=== PATIENT | male | born 1930 | race Caucasian/White ===

== ENCOUNTER 2017-02-11 08:18 | Emergency (ER) | payer MEDICARE, OTHER ==
[~2017-02-11] VITALS: Ht 167.6 cm; Wt 81.6 kg
[~2017-02-11 08:18] MED LIST: B12 INJ.,1000 MCG/M IM; DICLOFENAC SODI75 M3 PO; ENALAPRIL2.5 MG PO; KEFLEX 500MG.500 MG PO; PANTOPRAZOLE PO; PERCOCET 5/3251 EACH PO; PHENERGAN 25MG.25 M1 PO; TAMSULOSIN HYD0.4 MG PO
--- OUTSIDE RECORDS SUMMARY | 2017-02-11 08:50 | External Medical Summary Rpt | CCD ---
Author Author , LAVERNE Organization LAVERNE Address Unknown Phone [email or web address] Name Relationship Address Phone JUAN Next Of Kin [address] KARLEE LOV[address] [phone] [place] [address] Purpose Continuity of Care Document - 11-10-2012 through 2016 Allergies, Adverse Reactions, Alerts Type Allergy to substance Adverse Reaction to Substance Substance Reaction Severity NO KNOWN ALLERGIES Unknown Unknown Vital Signs 11-10-2012 15:44 Name Value Interpretat Reference Comment ion Range Body 97.6 [degF] Temperature BP 71 mm[Hg] Diastolic BP Systolic 125 mm[Hg] Heart 66 /min Rate/Pulse O2% 98 % Respiratory 17 /min Rate 11-10-2012 15:42 Name Value Interpretat Reference Comment ion Range Body 97.6 [degF] Temperature BP 71 mm[Hg] Diastolic BP Systolic 125 mm[Hg] Heart 66 /min Rate/Pulse O2% 98 % Respiratory 17 /min Rate Encounters Encounter Start End Date Code Location Performer Type Date Emergency YOLI Dang MD (ER) 3 15:22 3 15:[address] [facility]
--- OUTSIDE RECORDS SUMMARY | 2017-02-11 08:50 | External Medical Summary Rpt | CCD ---
Author Author , LAVERNE Organization LAVERNE Address Unknown Phone [email or web address] Support Name Relationship Address Phone JUAN Next Of Kin [address]ARLEE [address]OV[address] [phone] [place] [address] Purpose Continuity of Care Document - 11-10-2012 [...] Dang MD (ER) 3 15:22 3 15:46 [facility]
--- OUTSIDE RECORDS SUMMARY | 2017-02-11 08:50 | External Medical Summary Rpt | CCD ---
Author Author [employer] Organization [employer] Address Unknown Phone Unavailable Purpose Continuity of Care Document - through 2016
--- OUTSIDE RECORDS SUMMARY | 2017-02-11 08:51 | External Medical Summary Rpt | CCD ---
Demographics Preferred Language Lao Marital Status Unknown Cheondoism Affiliation Unknown Race Unknown Ethnic Group Unknown Author Author , LAVERNE GALLOWAY Address Unknown Phone Immunization Unable to retrieve immunization data due to connection failure with Immunization Registry. Please try again later.
--- OUTSIDE RECORDS SUMMARY | 2017-02-11 08:51 | External Medical Summary Rpt ---
Author Author LAVERNE Cano, LAVERNE Cano Organization [employer] Address Unknown Phone Unavailable
--- OUTSIDE RECORDS SUMMARY | 2017-02-11 08:51 | External Medical Summary Rpt | CCD ---
Demographics Preferred Language Belarusian Marital Status Unknown Faith Affiliation Unknown Race Unknown Ethnic Group Unknown Author Author , LAVERNE GALLOWAY Address Unknown Phone Immunization Unable to retrieve immunization data due to connection failure with Immunization Registry. Please try again later.
[2017-02-11 09:14] LABS: HEMOGLOBIN 14.5 g/dL (14.1-18.0); LYMPH # 1.3 K/mm3 (0.7-4.5)
--- NOTE | 2017-02-11 09:41 | Emergency Room Report ---
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 N Clinical Suspician of Infection? N Mental Status: 1 - Regular (Normal Baseline) Sepsis Risk:Low Sepsis Risk Have you (or family members/close friends) recently traveled outside the [place]? N If Yes, where/when: Have you had exposure to infectious disease within the past month? N TB? Other? Specify: At 0530 patient was sleeping but his was awake. He began to "shake all over " for roughly five minutes; no cyanosis; no loss of bowel or bladder function; no trauma. He does not recall this event. He now has some generalized weakness, but denies any chest pain, SOB, n/v, or unilateral weakness or change in speech. No cephalgia. No fever or rash. No prior hx of trauma, CVA, DM, or VT. He takes Aleve occasionally and has hx of HTN. ALLERGIES Coded Allergies: NO KNOWN ALLERGIES (02/11/17) Home Medications Reported Medications Diclofenac Sodium (Diclofenac Sodium Dr) 75 MG PO DAILY #60 Enalapril Maleate (Enalapril) 5 MG PO DAILY Vitamin B12 (Cyanocobalamin Injection) 1,000 MCG IM MONTHLY History Medical History General CAD? No Angina: No VT: No Hypertension? Yes Hyperlipidemia? No CHF? No COPD? No Asthma? No Anemia? No Hernia? No Thyroid Problems? No Hypothyroidism? No CVA? No Seizures? No Diabetes? No End Stage Renal Disease? No UTI? No Stones? No GB Disease: Yes Nephritic Syndrome? No Asplenia? No Hepatitis? No Sickle Cell Disease? No Arthritis? No Cataracts? Yes Glaucoma? No MRSA? No TB? No Cancer? No Immunization Hx DT/Tetanus 1-4 YRS Flu THIS YR Pneumonia 07/10/2011 Surgical Hx Previous Surgery?Y 5TH DIGIT LEFT HAND CATARACT SURGERY CARPEL ETHEL-LEFT GALLBLADDER RIGHT CARPAL TUNNEL Family History Family Hx Diabetes No CAD No Hypertension No Social History Smoking Hx Smoker: Never Smoker Tobacco: No Alcohol Alcohol: No Review of Systems All Other Systems Reviewed and Negative Psychiatric/Neurological see HPI Physical Exam Vital Signs Vital Signs Date Time Temp Pulse Resp B/P Pulse O2 O2 Flow FiO2 Ox Delivery Rate 02/11 1036 98.0 78 18 122/88 97 02/11 0949 78 18 123/64 97 02/11 0824 98.0 83 18 137/71 98 General Appearance normal appearance, WD/WN, no apparent distress Eye Exam - bilateral eye normal exam, bilateral eye PERRL, bilateral eye EOMI (no diplopia) Ear, Nose, Throat hearing grossly normal (atraumatic; no congestion) Neck normal inspection, non-tender, supple, full range of motion Respiratory Status Yes: trachea midline, chest symmetrical, non tender chest. No: respiratory distress, tender on palpation, use of accessory muscles, pain on inspiration, pain on expiration, productive cough, non productive cough. Lung Sounds bilateral: normal breath sounds, lungs clear. Cardiovascular normal exam, regular rate/rhythm, no peripheral edema, no gallop, no JVD, no murmur, no rub, normal peripheral pulses Gastrointestinal normal bowel sounds, normal exam, non tender, soft, no organomegaly, no pulsatile mass, no guarding, no rebound Extremities non-tender, normal range of motion, normal inspection, normal capillary refill, no calf tenderness, no pedal edema Strength 5 Upper Ext (L), 5 Upper Ext (R), 5 Lower Ext (L), 5 Lower Ext (R) Neurologic alert, functional architect II-XII nml as tested, normal exam, no motor/sensory deficits, oriented x 3, No tremor; technical support consultant equal; speech clear and fluent; finger to nose w/o dysmetria; NIHSS 0. Patient ambulatory and answers all questions appropriately. Glascow Coma Scale Glascow Coma Scale Response Value EYE response: 4 Spontaneously 4 MOTOR response: 6 OBEYS 6 VERBAL response: 5 Oriented & Converses 5 Total 15 Reflexes DTR 3+ knee (R), 3+ knee (L) Skin intact, normal color, warm/dry Medical Decision Making LABS/Meds/Orders Pt receiving controlled substance in ED? No Results/Orders Laboratory Tests 02/11/17 1005: Urine Color YELLOW, Urine Appearance CLEAR, Urine pH 6.0, Ur Specific [place] >= 1.030, Urine Protein NEGATIVE, Urine Ketones NEGATIVE, Urine Blood NEGATIVE, Urine Nitrate NEGATIVE, Urine Bilirubin NEGATIVE, Urine Urobilinogen 0.2, Ur Leukocyte Esterase NEGATIVE, Urine Glucose NEGATIVE 02/11/17 0905: Sodium 137, Potassium 3.9, Chloride 104, Carbon Dioxide 27, BUN 22 H, Creatinine 1.5 H, Estimated Creat Clear 42 L, Estimated GFR (MDRD) 45, Glucose 111 H, Calcium 9.1, Total Bilirubin 1.1 H, AST 29, ALT 23, Alkaline Phosphatase 73, Creatine Kinase 271, CK-MB (CK-2) Rel Index 1.3, CK and CKMB Interp 3.5, Troponin I < 0.02, Total Protein 7.4, Albumin 3.7, Globulin 3.7 H, Albumin/Globulin Ratio 1.0 L, WBC 10.5, RBC 4.82, Hgb 14.5, Hct 44.3, MCV 92.0, RDW 13.5, Plt Count 261, MPV 7.2 L, Gran % 82.4 H, Gran # 8.7 H, Lymphocytes % 12.0, Monocytes % 4.8, Eosinophils % 0.5, Basophils % 0.3, Lymphocytes # 1.3, Monocytes # 0.5, Eosinophils # 0.1, Basophils # 0.0, PUBS MCHC 32.8, MCH 30.2 Current Medication Orders Sig/Celia Start time Last Medication Dose Route Stop Time Status Admin Sodium Chloride 10 ML PRN PRN 02/11 845 AC IV 02/12 834 Orders Procedure Date/time Status DIET-NOTHING BY MOUTH 02/11 L Active URINALYSIS/COMPLETE 02/11 933 Complete ELECTROCARDIOGRAM REQUEST 02/[address] HEAD REQ 02/11 834 Complete IV SALINE LOCK 02/11 834 Active CBC WITH AUTO DIFF 02/11 834 Complete CARDIAC ENZYMES 02/11 834 Complete CHEM 12 PROFILE 02/11 834 Complete 12 LEAD EKG-[facility] (INITIAL) 02/11 UNK Active CM/EKG CM/EKG EKG rate, NSR, no evid. of ischemic chgs, no ectopy, normal QRS, normal [place] ( NSR 73) XRAY/CT/US XRAY/CT/US XRAY chest XR interpretation by reviewed by me (report reviewed) Xray Results normal/NAD, no infiltrates, normal heart size, normal lung inflation kristin CT head CT interpretation by reviewed by me Time results known: 1011 CT Results normal/NAD (neg acute) Progress ED Progress Notes Date 02/11/17 Time 1006 Comment Patient neurologically intact, no complaints. Ambulatory to BR. Departure Departure Disposition DC Home or Self Care(routine) Clinical Impression Primary Impression: Neurological complaint Secondary Impressions: Episode of shaking, Generalized weakness Condition STABLE Referrals Madhav RODRIGUEZ,Armando Villalba (Family) Patient Instructions DI for Seizure Disorder -- Adult Additional Instructions It is unknown if there was a seizure today or not. This event will require further evaluation by Dr. Corey and further testing at his discretion, with possible neurology referral at his discretion. Recommend no driving until cleared by Dr. Corey. Clear away any sharp or hard or breakable objects near or around the bed. Encourage by mouth fluids as urine is a little concentrated (but without infection) today. Discharge Counseling Counseled pt/family regarding diagnosis, test results, home care, follow up needs ED Critical Care Critical Care No at 1040
--- NOTE | 2017-02-11 09:41 | Emergency Room Report ---
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 N Clinical Suspician of Infection? N Mental Status: 1 - Regular (Normal Baseline) Sepsis Risk:Low Sepsis Risk Have you (or family members/close friends) recently traveled outside the [place]? N If Yes, where/when: Have you had exposure to infectious disease within the past month? N TB? Other? Specify: At 0530 patient was sleeping but his was awake. He began to "shake all over " for roughly five minutes; no cyanosis; no loss of bowel or bladder function; no trauma. He does not recall this event. He now has some generalized weakness, but denies any chest pain, SOB, n/v, or unilateral weakness or change in speech. No cephalgia. No fever or rash. No prior hx of trauma, CVA, DM, or SC. He takes Aleve occasionally and has hx of HTN. ALLERGIES Coded Allergies: NO KNOWN ALLERGIES (02/11/17) Home Medications Reported Medications Diclofenac Sodium (Diclofenac Sodium Dr) 75 MG PO DAILY #60 Enalapril Maleate (Enalapril) 5 MG PO DAILY Vitamin B12 (Cyanocobalamin Injection) 1,000 MCG IM MONTHLY History Medical History General CAD? No Angina: No SC: No Hypertension? Yes Hyperlipidemia? No CHF? No COPD? No Asthma? No Anemia? No Hernia? No Thyroid Problems? No Hypothyroidism? No CVA? No Seizures? No Diabetes? No End Stage Renal Disease? No UTI? No Stones? No GB Disease: Yes Nephritic Syndrome? No Asplenia? No Hepatitis? No Sickle Cell Disease? No Arthritis? No Cataracts? Yes Glaucoma? No MRSA? No TB? No Cancer? No Immunization Hx DT/Tetanus 1-4 YRS Flu THIS YR Pneumonia 07/10/2011 Surgical Hx Previous Surgery?Y 5TH DIGIT LEFT HAND CATARACT SURGERY CARPEL ETHEL-LEFT GALLBLADDER RIGHT CARPAL TUNNEL Family History Family Hx Diabetes No CAD No Hypertension No Social History Smoking Hx Smoker: Never Smoker Tobacco: No Alcohol Alcohol: No Review of Systems All Other Systems Reviewed and Negative Psychiatric/Neurological see HPI Physical Exam Vital Signs Vital Signs Date Time Temp Pulse Resp B/P Pulse O2 O2 Flow FiO2 Ox Delivery Rate 02/11 1036 98.0 78 18 122/88 97 02/11 0949 78 18 123/64 97 02/11 0824 98.0 83 18 137/71 98 General Appearance normal appearance, WD/WN, no apparent distress Eye Exam - bilateral eye normal exam, bilateral eye PERRL, bilateral eye EOMI (no diplopia) Ear, Nose, Throat hearing grossly normal (atraumatic; no congestion) Neck normal inspection, non-tender, supple, full range of motion Respiratory Status Yes: trachea midline, chest symmetrical, non tender chest. No: respiratory distress, tender on palpation, use of accessory muscles, pain on inspiration, pain on expiration, productive cough, non productive cough. Lung Sounds bilateral: normal breath sounds, lungs clear. 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 Patient ambulatory and answers all questions appropriately. Glascow Coma Scale Glascow Coma Scale Response Value EYE response: 4 Spontaneously 4 MOTOR response: 6 OBEYS 6 VERBAL response: 5 Oriented & Converses 5 Total 15 Reflexes DTR 3+ knee (R), 3+ knee (L) Skin intact, normal color, warm/dry Medical Decision Making LABS/Meds/Orders Pt receiving controlled substance in ED? No Results/Orders Laboratory Tests 02/11/17 1005: Urine Color YELLOW, Urine Appearance CLEAR, Urine pH 6.0, Ur Specific [place] >= 1.030, Urine Protein NEGATIVE, Urine Ketones NEGATIVE, Urine Blood NEGATIVE, Urine Nitrate NEGATIVE, Urine Bilirubin NEGATIVE, Urine Urobilinogen 0.2, Ur Leukocyte Esterase NEGATIVE, Urine Glucose NEGATIVE 02/11/17 0905: Sodium 137, Potassium 3.9, Chloride 104, Carbon Dioxide 27, BUN 22 H, Creatinine 1.5 H, Estimated Creat Clear 42 L, Estimated GFR (MDRD) 45, Glucose 111 H, Calcium 9.1, Total Bilirubin 1.1 H, AST 29, ALT 23, Alkaline Phosphatase 73, Creatine Kinase 271, CK-MB (CK-2) Rel Index 1.3, CK and CKMB Interp 3.5, Troponin I < 0.02, Total Protein 7.4, Albumin 3.7, Globulin 3.7 H, Albumin/Globulin Ratio 1.0 L, WBC 10.5, RBC 4.82, Hgb 14.5, Hct 44.3, MCV 92.0, RDW 13.5, Plt Count 261, MPV 7.2 L, Gran % 82.4 H, Gran # 8.7 H, Lymphocytes % 12.0, Monocytes % 4.8, Eosinophils % 0.5, Basophils % 0.3, Lymphocytes # 1.3, Monocytes # 0.5, Eosinophils # 0.1, Basophils # 0.0, PUBS MCHC 32.8, MCH 30.2 Current Medication Orders Sig/Celia Start time Last Medication Dose Route Stop Time Status Admin Sodium Chloride 10 ML PRN PRN 02/11 845 AC IV 02/12 834 Orders Procedure Date/time Status DIET-NOTHING BY MOUTH 02/11 L Active URINALYSIS/COMPLETE 02/11 933 Complete ELECTROCARDIOGRAM REQUEST 02/[address] HEAD REQ 02/11 834 Complete IV SALINE LOCK 02/11 834 Active CBC WITH AUTO DIFF 02/11 834 Complete CARDIAC ENZYMES 02/11 834 Complete CHEM 12 PROFILE 02/11 834 Complete 12 LEAD EKG-[facility] (INITIAL) 02/11 UNK Active CM/EKG CM/EKG EKG rate, NSR, no evid. of ischemic chgs, no ectopy, normal QRS, normal [place] ( NSR 73) XRAY/CT/US XRAY/CT/US XRAY chest XR interpretation by reviewed by me (report reviewed) Xray Results normal/NAD, no infiltrates, normal heart size, normal lung inflation kristin CT head CT interpretation by reviewed by me Time results known: 1011 CT Results normal/NAD (neg acute) Progress ED Progress Notes Date 02/11/17 Time 1006 Comment Patient neurologically intact, no complaints. Ambulatory to BR. Departure Departure Disposition DC Home or Self Care(routine) Clinical Impression Primary Impression: Neurological complaint Secondary Impressions: Episode of shaking, Generalized weakness Condition STABLE Referrals Madhav RODRIGUEZ,Armando Villalba (Family) Patient Instructions DI for Seizure Disorder -- Adult Additional Instructions It is unknown if there was a seizure today or not. This event will require further evaluation by Dr. Corey and further testing at his discretion, with possible neurology referral at his discretion. Recommend no driving until cleared by Dr. Corey. Clear away any sharp or hard or breakable objects near or around the bed. Encourage by mouth fluids as urine is a little concentrated (but without infection) today. Discharge Counseling Counseled pt/family regarding diagnosis, test results, home care, follow up needs ED Critical Care Critical Care No at 1040
[2017-02-11 09:46] LABS: BUN 22 mg/dL (7-18)
--- NOTE | 2017-02-11 09:52 | RADIOLOGY REPORT PS360 ---
CHEST-PORTABLE HISTORY: Chest tightness and congestion concern for seizure last night ORDERING PHYSICIAN: Sujey Mays MD PATIENT AGE: 86 years COMPARISON: None available FINDINGS: 07/25/2010 The cardiomediastinal silhouette and pulmonary vascularity are within normal limits. No lobar consolidation or collapse. Nodular opacities are present or both lower lung zones probably related to nipple shadows. Lungs are otherwise clear.. No acute bony abnormalities. IMPRESSION: No acute finding
--- NOTE | 2017-02-11 09:55 | RADIOLOGY REPORT PS360 ---
CT HEAD W/O CONTRAST HISTORY: New onset seizure SEIZURE LAST NIGHT ORDERING PHYSICIAN: Sujey Mays MD PATIENT AGE: 86 years COMPARISON: 07/03/2013 FINDINGS: There is mild prominence of the ventricles and sulci consistent with volume loss. Low density changes are present in the periventricular region consistent with ischemic gliotic change from small vessel disease. No midline shift, mass effect, intracranial hemorrhage, or hydrocephalus is evident. There is minimal opacification left mastoid inferiorly. No sinus air-fluid level. No acute calvarial abnormality. IMPRESSION: 1. No change with no acute intracranial findings. 2. Minimal opacification left mastoid sinus inferiorly
[2017-02-11 09:57] LABS: GFR (ESTIMATED) 45 ML/MIN (>60)
[2017-02-11 10:26] LABS: URINE BILIRUBIN - DIPSTICK NEGATIVE (NEG); URINE BLOOD NEGATIVE (NEG)
[2017-02-11 10:43] LABS: URINE SQUAMOUS CELLS OCC #/hpf (OCC)
[2017-02-11 10:47] VITALS: BP 122/65
== END 2017-02-11 10:47 | disposition home or self-care (01) ==
LOC: ER 08:18
PROVIDERS: Emergency Medicine
DX: R29.818 Other symptoms and signs involving the nervous system (principal); R53.1 Weakness; I10 Essential (primary) hypertension

== ENCOUNTER → 2017-02-18 | Outpatient (CLI) | payer MEDICARE, OTHER ==
--- NOTE | 2017-02-21 06:56 | RADIOLOGY REPORT PS360 ---
MRI-BRAIN W/O HISTORY: Seizure disorder NEW SEIZURES ORDERING PHYSICIAN: Armando Corey MD PATIENT AGE: 86 years COMPARISON: 02/11/[address] TECHNIQUE: Standard multiplanar multiecho sequences are performed without contrast. FINDINGS: No midline shift, mass effect, intracranial hemorrhage, hydrocephalus, or acute infarction evident. No intra or extra-axial mass. There is generalized atrophy with periventricular ischemic gliotic changes and dilated perivascular spaces. Scattered periventricular and subcortical T2 white matter hyperintensities are present consistent with ischemic gliotic change from microvascular disease. Hippocampal gyri are unremarkable in the temporal horns are symmetric. No pituitary mass. Optic chiasm is unremarkable. There is some thinning of the corpus callosum in keeping with the atrophy. No abnormal restricted diffusion. Cerebellopontine angles, cerebellum, and brainstem are unremarkable. Ischemic gliotic changes are present within the maya. No mastoid effusion or sinus air-fluid level. Spondylosis is present in the cervical spine. IMPRESSION: 1. No acute intracranial findings. 2. Atrophy with chronic ischemic changes
== END ==
LOC: RAD 13:00 → RT 13:00 → RAD 13:52
DX: R56.9 Unspecified convulsions (principal)